=== PATIENT | female | born 1980 | race African-American/Black ===

== ENCOUNTER 2016-06-23 21:42 | Inpatient (IN) | payer BC, MEDICAID ==
[2016-06-23] MEDS ORDERED: Sodium Chloride 0.9% 1,000 ML IV ONE (22:17)
[2016-06-23 22:48] LABS: URINE BACTERIA OCCASIONAL /hpf (NONE SEEN); URINE BILIRUBIN NEGATIVE (NEGATIVE); URINE BLOOD MODERATE (NEGATIVE); URINE COLOR YELLOW; URINE EPITHELIAL CELLS RARE /lpf (FEW); URINE GLUCOSE (UA) NEGATIVE (NEGATIVE); URINE KETONE TRACE mg/dL (NEGATIVE); URINE PROTEIN 30 mg/dL (NEGATIVE); URINE RBC 50-100 /hpf (0-5); URINE UROBILINOGEN 0.2 E.U./dL (0.2 - 1.0); URINE WBC 0-2 /hpf (0-5)
--- NOTE | 2016-06-23 23:33 | ED Physician Chart ---
Chief Complaint/HPI - Patient Information Date Seen:: 06/23/16 Time Seen:: 22:00 Chief Complaint:: abdominal pain History of Present Illness:: patient has had RUQ abdominal pain since 1430. Vomited 7 times. No diarrhea. No fever. This is fourth episode of similar pain. Gallstones diagnosed 12/17 at [facility]. Allergies:: Allergies Allergy/AdvReac Type Severity Reaction Status Date / Time amoxicillin Allergy Verified 06/23/16 22:11 meperidine [From Demerol] Allergy Verified 06/23/16 22:11 Vitals:: Vital Signs - 8 hr 06/23/16 21:50 Temp 97.0 F HR 74 RR 19 BP 188/112 O2 Sat % 99 Review of Systems - Review of Systems General/Constitutional: No fever, No chills Skin: No skin lesions Head: No headache Eyes: No loss of vision ENT: No earache Neck: No neck pain Cardio Vascular: No chest pain Pulmonary: No SOB GI: Nausea, Vomiting, Pain G/U: No dysuria Musculoskeletal: No bone or joint pain, No back pain Endocrine: No polyuria, No polydipsia Psychiatric: No prior psych history Hematopoietic: No bruising Allergic/Immuno: No urticaria Neurological: No syncope Past Medical History - Past Medical History Past Medical History: HTN Family History: Diabetes Melitus, HTN Social History: Smoker, Other (smokes 6-7 cigarets per day) Surgical History: Medication: Reviewed Family Medical History - Family Member Mother Ethnicity: Non- Living Status: Still Living Physical Exam - Physical Examination General/Constitutional: Well-developed, well-nourished, Alert Other Gen/Cons comments:: moderate distress Head: Atraumatic Eyes: Lids, conjuctiva normal, PERRL Skin: Nl inspection, No rash, No skin lesions, No ecchymosis, Well hydrated, No lymphadenopathy ENMT: External ears, nose nl, TM canals nl, Nasal exam nl, Lips, teeth, gums nl , Oropharynx nl, Tonsils nl Neck: No nuchal rigidity Respiratory: Nl effort/Exclusion, Clear to Auscultation, No Wheeze/Rhonchi/Rales Cardio Vascular: RRR, No murmur, gallop, rubs GI: No organomegaly, No hernia, Normal BS's, Nondistended, No mass/bruits, No McBurney tenderness Other GI comments:: RUQ tenderness Extremities: Normal digits & nails Neuro/Psych: Alert/oriented, No focal deficits Misc: Normal back Labs/Radiology/EKG Results - Lab Results Results: Laboratory Tests 06/23/16 22:30 Urine Source CLEAN C Urine Color YELLOW Urine Clarity SLIGHT HAZY Urine pH 7.0 Ur Specific [place] 1.025 Urine Protein 30 H Urine Glucose (UA) NEGATIVE Urine Ketones TRACE Urine Blood MODERATE H Urine Nitrate NEGATIVE Urine Bilirubin NEGATIVE Urine Urobilinogen 0.2 Ur Leukocyte Esterase NEGATIVE Urine RBC 50-100 H Urine WBC 0-2 Ur Epithelial Cells RARE Urine Bacteria OCCASIONAL Comments:: Laboratory Results - last 24 hr 06/23/16 06/23/16 06/23/16 22:30 22:30 23:43 WBC 15.4 H RBC 4.63 Hgb 14.0 Hct 41.1 MCV 89.0 MCH 30.4 MCHC Differential 34.1 RDW 12.7 Plt Count 390 MPV 7.1 Neutrophils (Manual) 88 H Lymphocytes 9 L Monocytes 3 Platelet Estimate ADEQUATE Platelet Morphology NORMAL RBC Morph Micro Appear NORMAL Sodium Potassium Chloride Carbon Dioxide Anion Gap BUN Creatinine Est GFR ( Amer) Est GFR (Non-Af Amer) BUN/Creatinine Ratio Glucose Whole Bld Lactic Acid Calcium Total Bilirubin AST ALT Alkaline Phosphatase Total Protein Albumin Globulin Albumin/Globulin Ratio Lipase Urine Source CLEAN C Urine Color YELLOW Urine Clarity SLIGHT HAZY Urine pH 7.0 Ur Specific [place] 1.025 Urine Protein 30 H Urine Glucose (UA) NEGATIVE Urine Ketones TRACE Urine Blood MODERATE H Urine Nitrate NEGATIVE Urine Bilirubin NEGATIVE Urine Urobilinogen 0.2 Ur Leukocyte Esterase NEGATIVE Urine RBC 50-100 H Urine WBC 0-2 Ur Epithelial Cells RARE Urine Bacteria OCCASIONAL Urine Test NEGATIVE 06/23/16 06/24/16 23:43 00:03 WBC RBC Hgb Hct MCV MCH MCHC Differential RDW Plt Count MPV Neutrophils (Manual) Lymphocytes Monocytes Platelet Estimate Platelet Morphology RBC Morph Micro Appear Sodium 136 Potassium 3.6 Chloride 99 Carbon Dioxide 27.8 Anion Gap 12.8 BUN 6 L Creatinine 0.8 Est GFR ( Amer) > 60.0 Est GFR (Non-Af Amer) > 60.0 BUN/Creatinine Ratio 7.5 Glucose 127 H Whole Bld Lactic Acid 1.66 Calcium 9.2 Total Bilirubin 0.5 AST 28 ALT 42 Alkaline Phosphatase 105 H Total Protein 7.9 Albumin 4.1 Globulin 3.8 Albumin/Globulin Ratio 1.1 Lipase 6 L Urine Source Urine Color Urine Clarity Urine pH Ur Specific [place] Urine Protein Urine Glucose (UA) Urine Ketones Urine Blood Urine Nitrate Urine Bilirubin Urine Urobilinogen Ur Leukocyte Esterase Urine RBC Urine WBC Ur Epithelial Cells Urine Bacteria Urine Test - Radiology Results Results: sludge in gallbladder Assessment - Assessment General Assessment: patient received pain relief after dilaudid but not after toradol ED Septic Shock - . Is Septic Shock (SBP<90, OR Lactate>4 mmol\L) present?: No - <6hrs of presentation: Vital Signs: Vital Signs - 8 hr 06/23/16 21:50 Temp 97.0 F HR 74 RR 19 BP 188/112 O2 Sat % 99 Reassessment (Disposition) - Reassessment Reassessment Condition:: Improved - Diagnosis Diagnosis:: biliary colic; acute cholecystitis; leukocytosis - Patient Disposition Admitted to:: Med/Surg Spoke to:: Giovani Castrejon Admitting Medical Physician:: Giovani Castrejon Condition at Disposition:: Improved
[2016-06-23] MEDS ORDERED: HYDROmorphone 1 mg/mL 1mL Syr ONE (23:48)
[2016-06-23 23:49] LABS: HEMATOCRIT 41.1 % (35.0-45.0); MEAN CORPUSCULAR HEMOGLOBIN 30.4 pg (27.0-31.0); MEAN CORPUSCULAR HGB CONC 34.1 pg (28.0-36.0); MEAN PLATELET VOLUME 7.1 fl; PLATELET COUNT 390 Th/cmm (150-400); RED BLOOD COUNT 4.63 Mil/cmm (3.80-5.10); RED CELL DISTRIBUTION WIDTH 12.7 % (11.5-20.0)
[2016-06-23 23:51] LABS: WHITE BLOOD COUNT 15.4 Th/cmm (4.8-10.8)
[2016-06-23] MEDS ORDERED: HYDROmorphone 1 mg/mL 1mL Syr IVP STA (23:56)
[2016-06-24 00:04] LABS: ALB/GLOB RATIO 1.1 (1.0-1.8); ALKALINE PHOSPHATASE 105 U/L (34-104); ANION GAP 12.8 (7.0-16.0); BILIRUBIN,TOTAL 0.5 mg/dL (0.3-1.0); BUN - UREA NITROGEN 6 mg/dL (7-25); BUN/CREATININE RATIO 7.5; CALCIUM SERUM 9.2 mg/dL (8.6-10.3); CARBON DIOXIDE 27.8 mEq/L (21.0-31.0); CHLORIDE 99 mEq/L (98-107); CREATININE - SERUM 0.8 mg/dL (0.6-1.2); GLUCOSE 127 mg/dL (70-105); LIPASE 6 U/L (11-82); POTASSIUM SERUM 3.6 mEq/L (3.5-5.1); SGOT 28 U/L (13-39); SGPT/ALT 42 U/L (7-52); SODIUM SERUM 136 mEq/L (136-145)
[2016-06-24 00:10] LABS: NEUTROPHILS 88 % (40-80); TOTAL CELLS COUNTED 100
[2016-06-24 00:11] LABS: PLATELET ESTIMATE ADEQUATE (NORMAL); PLATELET MORPHOLOGY NORMAL (NORMAL)
--- NOTE | 2016-06-24 01:34 | Admit Criteria Form ---
Admit Criteria Forms - Admit Criteria Diagnosis: ABDOMINAL PAIN Clinical Indications for Admission to Inpatient Care (Place 'X' for any and all applicable criteria): Admission is indicated for ANY ONE of the following(1)(2)(3)(4)(5): [X ]I. Inpatient admission required rather than observation care (Also use Abdominal Pain: Observation Care, as appropriate) because of ANY ONE of the following: [ X]a) Severe pain requiring acute inpatient management [ ]b) Identification of etiology/finding that requires inpatient care (eg, aortic dissection, free air) [ ]c) Absent bowel sounds with complete ileus(6) [ ]d) Suspected toxic megacolon [ ]e) Severe electrolyte abnormalities requiring inpatient care [ ]f) High fever or infection requiring inpatient admission as indicated by ANY ONE of following(7)(8): [ ] i) Appropriate outpatient or observational care antimicrobial treatment unavailable, not effective, or not feasible [ ] ii) Documented bacteremia [ ] iii) Temperature > 104.9 degrees F (oral) [ ] iv) T >103.1 F (oral) or < 96.8 F(rectal) that does not respond to all emergency treatment measures [ ]g) Signs of intestinal obstruction [B] [ ]h) Hemodynamic instability [ ]i) IV fluid to replace significant ongoing losses (greater than 3 L/m2 per day) (12)(13) [ ]j) Percutaneous or open drainage (eg, abscess, biliary tract ) procedures [ ]k) Parenteral nutrition regimen that must be implemented on inpatient basis [ ]l) Other condition,treatment or monitoring requiring inpatient admission. [ ]II. Peritoneal signs present [ ]III. Surgery needed that cannot be performed on an ambulatory basis. [ ]IV. Evaluation requires patient to not eat or drink for extended period ( eg, more than 24 hours). [ ]V. Contraindications and/or Inappropriate clinical situations for Observational Care in patients with abdominal pain, when ANY ONE of the following is required: [ ]a) Thorough evaluation is required to prevent catastrophic events due to delays in diagnosing (e.g.Mesenteric ischemia) 1,3 [ ]b) Patient with severe pathology or with chronic symptoms unlikely to improve in the ED stay (3) [ X]. General contraindications and/or Inappropriate clinical situations for Observational Care in patients with abdominal pain, when ANY ONE of the following is required: [ ]a) Prediction of prolongation of LOS based on ANY ONE of the following may be considered as a contraindication for observational care 2, 3, 4, 5, 6, 7, 8, 9, 10, 11 [ ]i) Age > 65 yrs. [ ]ii) Patient arriving by ambulance [ ]iii) Patient with high acuity [ ]iv) Patient requiring vital sign monitoring [ ]v) Patient on IV medication [ X]b) Systolic blood pressures 180mmHg 3,12 [ ]c) Patient with altered mental status including delirium and other alteration of consciousness, (3) [ ]d) Patient whose discharge disposition will be to a care home home or rehabilitation home should not be managed in Emergency Department Observation Unit. CMS rule requires 3 days hospital stay before such placement.3,13 [ ]e) Patient with failure to thrive due to broad array of etiologies 3,16,17 [ ]f) Inability to ambulate 3,14 Extended stay beyond goal length of stay may be needed for(2)(3): [ ]a) Persistent abdominal pain with suspected intra-abdominal process [ ]b) Diagnosed condition requiring continued stay (e.g., pancreatitis, complicated diverticulitis) [ ]c) Surgery (e.g., colectomy) The original [employer] content created by [employer] has been revised. The portions of the content which have been revised are identified through the use of italic text or in bold, and [facility] has neither reviewed nor approved the modified material.All other unmodified content is copyright [facility]. Please see references footnoted in the original [facility] edition 2016 Admit Criteria Met?: Yes
[2016-06-24] MEDS: D5-0.45NS 1,000 ML IV SCH ×2 (01:43→12:10)
[2016-06-24] MEDS: HYDROmorphone 1 mg/mL 1mL Syr IVP PRN ×2 (03:33→06:35)
--- NOTE | 2016-06-24 08:57 | Diagnostic Imaging Report ---
Ultrasound abdomen, limited HISTORY: Right upper quadrant pain COMPARISON: None Technique: Sonography of the right upper quadrant was performed in multiple planes. FINDINGS: Diffuse sludge and probable stone filled gallbladder is noted. The gallbladder wall measures 0.5 cm. The common bile left measures 5 mm. IMPRESSION: Diffuse sludge filled gallbladder with possible stones also. There is also mild prominence of the gallbladder wall. No pericholecystic fluid. Please correlate with clinical findings. Consider further assessment with nuclear medicine HIDA scan.
[2016-06-24] MEDS: HYDROmorphone 2 mg/mL 1mL Vial IVP PRN ×2 (09:38→16:45)
--- NOTE | 2016-06-24 09:42 | General Progress Note ---
Subjective - Review of Systems Events since last encounter: 06/24/16 4 episode of attack, known GB stones since Dec 2015 Plan: HIDA scan lap cholecystectomy in AM Objective - Results Result Diagrams: 06/23/16 23:43 06/23/16 23:43 Recent Labs: Laboratory Last Values WBC 15.4 Th/cmm (4.8-10.8) H 06/23/16 23:43 RBC 4.63 Mil/cmm (3.80-5.10) 06/23/16 23:43 Hgb 14.0 gm/dL (11.7-15.5) 06/23/16 23:43 Hct 41.1 % (35.0-45.0) 06/23/16 23:43 MCV 89.0 fl (81-100) 06/23/16 23:43 MCH 30.4 pg (27.0-31.0) 06/23/16 23:43 MCHC Differential 34.1 pg (28.0-36.0) 06/23/16 23:43 RDW 12.7 % (11.5-20.0) 06/23/16 23:43 Plt Count 390 Th/cmm (150-400) 06/23/16 23:43 MPV 7.1 fl 06/23/16 23:43 Neutrophils (Manual) 88 % (40-80) H 06/23/16 23:43 Lymphocytes 9 % (20-50) L 06/23/16 23:43 Monocytes 3 % (2-10) 06/23/16 23:43 Platelet Estimate ADEQUATE (NORMAL) 06/23/16 23:43 Platelet Morphology NORMAL (NORMAL) 06/23/16 23:43 RBC Morph Micro Appear NORMAL (NORMAL) 06/23/16 23:43 Sodium 136 mEq/L (136-145) 06/23/16 23:43 Potassium 3.6 mEq/L (3.5-5.1) 06/23/16 23:43 Chloride 99 mEq/L (98-107) 06/23/16 23:43 Carbon Dioxide 27.8 mEq/L (21.0-31.0) 06/23/16 23:43 Anion Gap 12.8 (7.0-16.0) 06/23/16 23:43 BUN 6 mg/dL (7-25) L 06/23/16 23:43 Creatinine 0.8 mg/dL (0.6-1.2) 06/23/16 23:43 Est GFR ( Amer) > 60.0 ml/min (>90) 06/23/16 23:43 Est GFR (Non-Af Amer) > 60.0 ml/min 06/23/16 23:43 BUN/Creatinine Ratio 7.5 06/23/16 23:43 Glucose 127 mg/dL (70-105) H 06/23/16 23:43 Whole Bld Lactic Acid 1.66 mmol/L (0.60-1.99) 06/24/16 00:03 Calcium 9.2 mg/dL (8.6-10.3) 06/23/16 23:43 Total Bilirubin 0.5 mg/dL (0.3-1.0) 06/23/16 23:43 AST 28 U/L (13-39) 06/23/16 23:43 ALT 42 U/L (7-52) 06/23/16 23:43 Alkaline Phosphatase 105 U/L (34-104) H 06/23/16 23:43 Total Protein 7.9 gm/dL (6.0-8.3) 06/23/16 23:43 Albumin 4.1 gm/dL (3.7-5.3) 06/23/16 23:43 Globulin 3.8 gm/dL 06/23/16 23:43 Albumin/Globulin Ratio 1.1 (1.0-1.8) 06/23/16 23:43 Lipase 6 U/L (11-82) L 06/23/16 23:43 Urine Source CLEAN C 06/23/16 22:30 Urine Color YELLOW 06/23/16 22:30 Urine Clarity SLIGHT HAZY (CLEAR) 06/23/16 22:30 Urine pH 7.0 06/23/16 22:30 Ur Specific [place] 1.025 (1.005-1.030) 06/23/16 22:30 Urine Protein 30 mg/dL (NEGATIVE) H 06/23/16 22:30 Urine Glucose (UA) NEGATIVE mg/dL (NEGATIVE) 06/23/16 22:30 Urine Ketones TRACE mg/dL (NEGATIVE) 06/23/16 22:30 Urine Blood MODERATE (NEGATIVE) H 06/23/16 22:30 Urine Nitrate NEGATIVE (NEGATIVE) 06/23/16 22:30 Urine Bilirubin NEGATIVE (NEGATIVE) 06/23/16 22:30 Urine Urobilinogen 0.2 E.U./dL (0.2 - 1.0) 06/23/16 22:30 Ur Leukocyte Esterase NEGATIVE (NEGATIVE) 06/23/16 22:30 Urine RBC 50-100 /hpf (0-5) H 06/23/16 22:30 Urine WBC 0-2 /hpf (0-5) 06/23/16 22:30 Ur Epithelial Cells RARE /lpf (FEW) 06/23/16 22:30 Urine Bacteria OCCASIONAL /hpf (NONE SEEN) 06/23/16 22:30 Urine Test NEGATIVE 06/23/16 22:30 - Physical Exam Vitals and I&O: Vital Signs Temp 97.2 F 06/24/16 08:00 Pulse 80 06/24/16 08:00 Resp 19 06/24/16 08:00 BP 152/95 06/24/16 08:00 Pulse Ox 97 06/24/16 08:00 Intake & Output 06/23/16 06/24/16 06/24/16 18:59 06:59 18:59 Intake Total 0 Balance 0 Intake: Oral 0 Other: # Voids 1 Active Medications: Current Medications Hydromorphone HCl (Dilaudid) 2 mg IVP Q3HR PRN PRN Reason: Abdominal Pain Stop: 08/23/16 09:05 Last Admin: 06/24/16 09:38 Dose: 2 mg Dextrose/Sodium Chloride (D5-0.45ns) 1,000 mls @ 110 mls/hr IV .Q9H6M [facility] Stop: 08/23/16 00:50 Last Admin: 06/24/16 01:43 Dose: 110 mls/hr Levofloxacin (Levaquin Pb) 500 mg in 100 mls @ 100 mls/hr IV Q24HR [facility] Stop: 08/23/16 10:29 Metronidazole (Flagyl) 500 mg in 100 mls @ 100 mls/hr IV Q8HR [facility] Stop: 08/23/16 12:59 Pantoprazole Sodium (Protonix) 40 mg IVP QDAC [facility] Stop: 08/23/16 11:29 Pneumococcal Polyvalent Vaccine (Pneumovax) 0.5 ml IM .ONCE ONE Stop: 06/25/16 09:01
[2016-06-24] MEDS ORDERED: Levofloxacin 500mg/100mL 500 MG/100 ML BAG IV SCH (10:30)
--- NOTE | 2016-06-24 11:31 | History & Physical ---
PATIENT IDENTIFICATION: A 35-year-old female. CHIEF COMPLAINT: Abdominal pain. HISTORY OF PRESENT ILLNESS: A 35-year-old -[place]ammar[place] female with history of cholelithiasis diagnosed in month of December scheduled to have outpatient followup with the surgeon presented to Emergency Room for evaluation of abdominal pain. According to the patient, she gets recurrent abdominal pain and she always takes juice and vinegar, it helps it, but yesterday when she had an attack after eating food, she tried vinegar water with juice, but no improvement. The pain got worse and she scale 10/10. She brought herself to the Emergency Room where the patient was seen by ER MD. The patient was noted to have significant leukocytosis with slightly elevated alkaline phosphatase. The patient is advised to be admitted. PAST MEDICAL HISTORY: Remarkable for cholelithiasis. MEDICATIONS AT HOME: Ibuprofen and hydrocodone. ALLERGIES: THE PATIENT IS ALLERGIC TO AMOXICILLIN AND DEMEROL. SOCIAL HISTORY: She lives by herself. She has history of cigarette smoking, occasional alcohol use. Denies any street drug use. She works office based jobs. FAMILY MEDICAL HISTORY: Remarkable for diabetes, hypertension and cancer. REVIEW OF SYSTEMS: The patient denies any fever, chills, headache, blurred vision, double vision, dysphagia, odynophagia, runny nose, stuffy nose, nausea, vomiting, hematemesis. No history of any hematuria, hematochezia, melena. No history of seizure or syncopal episode. PHYSICAL EXAMINATION: GENERAL: The patient is alert, awake, oriented, lying in the bed. VITAL SIGNS: Temperature 97.2, pulse is 80, respiratory rate is 18, blood pressure 150/79. SKIN: Warm to touch. HEENT: Normocephalic, atraumatic. Extraocular muscles are intact. Tongue was pink and coated. NECK: Supple, no JVD, no hepatojugular reflux. No lymphadenopathy, thyromegaly or carotid bruit. HEART: Both heart sounds are regular. No S3, no S4, no murmur. CHEST: Lung equal in expansion. No wheezing, no crackles. ABDOMEN: Soft. Significant tenderness and guarding noted in the right upper quadrant. Bowel sounds are present. No palpable mass. EXTREMITIES: No edema, no cyanosis. NEUROLOGIC: Nonfocal. AVAILABLE DIAGNOSTIC DATA: Has been reviewed. CLINICAL IMPRESSION: Symptomatic cholelithiasis and cholecystitis. PLAN: 1. Admit this patient to Med/Surg floor. 2. NPO. 3. IV antibiotic. 4. Gastrointestinal and General Surgery consultation. 5. Symptoms management for pain and nausea, vomiting. 6. Follow up lab. 7. Follow showroom consultant recommendations. 8. Care plan reviewed and discussed with staff. JOB# [id number]
[2016-06-24] MEDS ORDERED: metroNIDAZOLE 500mg/NS 100mL 500 MG/100 ML BAG IV SCH (13:00)
--- NOTE | 2016-06-25 02:41 | Consultation ---
INPATIENT GASTROINTESTINAL CONSULTATION REFERRING PHYSICIAN: Dr. Castrejon. REASON FOR CONSULTATION: Gallstones. HISTORY OF PRESENT ILLNESS: This is a 35-year-old female, pleasant, who was having on and off right upper quadrant pain associated with nausea and vomiting without any hematemesis or coffee-ground emesis. She had been seen previously at an outside hospital and was told she had gallstones. Because of insurance reasons, she did not make it to see her surgeon and now came to the hospital with recurrent right upper quadrant pain. She denies having active bleeding at this time of our interview. She denies any diarrhea. PAST MEDICAL HISTORY: Gallstones. PAST SURGICAL HISTORY: None to abdomen. FAMILY HISTORY: Noncontributory. SOCIAL HISTORY: Smokes tobacco. Drinks alcohol, but not heavy. No IV drug usage. ALLERGIES: AMOXICILLIN and MEPERIDINE. CURRENT MEDICATIONS: Dilaudid, Levaquin, Flagyl, Protonix, Pneumovax, IV fluids. REVIEW OF SYSTEMS: Ten point review of system was performed and the pertinent positive is right upper quadrant pain. All other systems were otherwise negative. PHYSICAL EXAMINATION: VITAL SIGNS: Temperature 97.2, breathing 19, pulse of 80, blood pressure 152/95, satting 97%. GENERAL: In no apparent distress. EYES: Anicteric, normal conjunctivae. HEENT: Normocephalic, atraumatic. Moist mucous membranes. NECK: Soft, supple. CHEST: Clear, no effort. CARDIOVASCULAR: Regular rate and rhythm. ABDOMEN: Soft, nondistended. Tender right upper quadrant. No rebound or guarding. SKIN: Warm, dry. EXTREMITIES: Reveal no cyanosis. PSYCHOLOGIC: Alert and oriented x3. LABORATORY DATA: Show white count 15.4, hemoglobin 14, platelets of 390. Creatinine 0.8, total bilirubin 0.5, AST 28, ALT 42, alk phos ____, lipase 6. test was negative. Abdominal ultrasound showed gallstones. IMPRESSION: A 35-year-old female with gallstones, seemed to be symptomatic, with a degree of white count which may even suggests underlying cholecystitis. PLAN: 1. Check a HIDA scan. 2. Continue antibiotics. 3. Surgical evaluation and consider cholecystectomy. Thank you for allowing me to participate. Please call me if you have any questions. JOB# [id number]
[2016-06-25] MEDS ORDERED: Pneumococcal Vaccine 0.5 mL Vial IM ONE (09:00)
--- NOTE | 2016-06-25 10:21 | Diagnostic Imaging Report ---
History: Right upper quadrant pain Technique: Following IV administration of 5 mCi of technetium Choletec dynamic and static images were obtained over a period of 2 hours. Findings: Activity seen in the liver and in the common bile duct and in the bowel. No activity is seen in the gallbladder. Impression: Nonvisualization of the gallbladder on the 2 hour delayed film suggesting acute cholecystitis or cystic duct obstruction..
--- NOTE | 2016-07-19 17:02 | Consultation ---
DATE OF CONSULTATION: 06/24/2016 REFERRING PHYSICIAN: Dr. Castrejon. REASON FOR CONSULTATION: Abdominal pain. Thank you for referring this patient to me. HISTORY OF PRESENT ILLNESS: This is a 36-year-old female with history of gallstones diagnosed back in December. According to the patient, she gets recurrent abdominal pain and the day prior to admission following a meal, she started complaining of pain that was severe. She came to the Emergency Room and admitted from there. PAST MEDICAL HISTORY: Includes diabetes, hypertension and cancer. LABORATORY STUDIES: Showed WBC of 15,400. The platelet count is normal. The chemistry shows liver function test to be essentially normal except for slightly elevated alkaline phosphatase. Lipase is low at 6. PHYSICAL EXAMINATION: The patient is tender in the right upper quadrant and epigastric area. PLAN: HIDA scan was ordered and if positive, we will proceed with scheduling her for a laparoscopic versus open cholecystectomy. Informed consent discussed with the patient regarding possible complications. She understands. [facility]# [id number]
== END 2016-06-24 20:20 | disposition short-term general hospital (02) | DRG 446 ==
LOC: ER 21:42 → MSI 06-24 00:50
PROVIDERS: ADMIT Internal Medicine; ATTEND Internal Medicine
DX: K80.00 Calculus of gallbladder with acute cholecystitis without obstruction (principal); I10 Essential (primary) hypertension; F17.210 Nicotine dependence, cigarettes, uncomplicated; Z88.1 Allergy status to other antibiotic agents; Z88.8 Allergy status to other drugs, medicaments and biological substances; Z83.3 Family history of diabetes mellitus; Z82.49 Family history of ischemic heart disease and other diseases of the circulatory system
CPT/HCPCS: 36415-UA; 76705-TC; 78226-TC; 80053-TC; 81001-TC; 81025-TC; 83605; 83690-TC; 85007-TC; 85027-TC; 90799; 96374; 96375; A9537; C9113; J1170; J1885; J1956; J2405; J7030